=== PATIENT | male | born 1980 | race Caucasian/White ===

== ENCOUNTER 2023-05-07 07:51 | Emergency (ER) | payer SELFPAY ==
[~2023-05-07] VITALS: Ht 170.2 cm; Wt 73.9 kg
[2023-05-07 07:53] VITALS: BP 138/90; PULSE 94; RESP 16; TEMP 97.9; O2SAT 98
[2023-05-07] MEDS ORDERED: LORazepam 1 MG TAB PO ONE (08:20)
[2023-05-07 09:12] VITALS: BP 138/90; PULSE 94; RESP 16; TEMP 97.9; O2SAT 98
== END 2023-05-07 09:12 | disposition home or self-care (01) ==
LOC: MED 07:51
DX: F15.159 Other stimulant abuse with stimulant-induced psychotic disorder, unspecified (principal)
CPT/HCPCS: 99283